=== PATIENT | female | born 1980 | race American Indian/Alaskan Native ===

== ENCOUNTER 2017-02-12 03:56 | Emergency (ER) | payer OTHER ==
[2017-02-12 05:04] LABS: Bilirubin,Urine NEG (Negative); Blood,Urine LG (Negative); Ketones,Urine NEG (Negative); Leukocyte Esterase,Urine TR (Negative); Mucus,Urine FEW /HPF; Nitrite,Urine NEG (Negative); Protein,Urine <15 mg/dL mg/dL (Negative)
[2017-02-12 05:17] LABS: Basophils % (Auto) 0.5 % (0.0-1.8); Eosinophils % (Auto) 0.1 % (0.0-4.3); Hematocrit 44.1 % (30.3-42.9); Hemoglobin 14.8 gm/dl (10.1-14.3); Mean Corpuscular HGB Conc 34 % (30-34); Mean Corpuscular Hemoglobin 27 pg (28-32); Mean Corpuscular Volume 81 fl (79-97); Platelet Count 249 K/mm3 (140-440); Red Blood Count 5.44 M/mm3 (3.65-5.03); Red Cell Distribution Width 13.7 % (13.2-15.2); White Blood Count 9.4 K/mm3 (4.5-11.0)
[2017-02-12 05:29] LABS: Alanine Aminotransferase 35 units/L (7-56); Albumin 4.3 g/dL (3.9-5); Albumin/Globulin Ratio 1.5 %; Alkaline Phosphatase 49 units/L (35-129); Anion Gap 17 mmol/L; Blood Urea Nitrogen 7 mg/dL (7-17); Calcium 9.7 mg/dL (8.4-10.2); Carbon Dioxide 25 mmol/L (22-30); Chloride 97.9 mmol/L (98-107); Glucose 140 mg/dL (65-100); Lipase 16 units/L (13-60); Potassium 4.3 mmol/L (3.6-5.0); Sodium 136 mmol/L (137-145); Total Protein 7.1 g/dL (6.3-8.2)
[2017-02-12] MEDS ORDERED: PEPCID IV ONE (06:20)
[2017-02-12] MEDS ORDERED: ZOFRAN IV ONE (06:21)
[2017-02-12] MEDS ORDERED: MORPHINE IV ONE (06:41)
--- NOTE | 2017-02-12 06:48 | Emergency Department Report ---
ED Abdominal Pain HPI - General Chief Complaint: Abdominal Pain Stated Complaint: ABD PAIN Time Seen by Provider: 02/12/17 06:08 Source: family Mode of arrival: Ambulatory Limitations: No Limitations - History of Present Illness Initial Comments: 36-year-old female here with complaint of abdominal pain since 9:30 PM yesterday. Patient states that she had developed significant pain in her suprapubic region and right lower quadrant. She's had vomiting 1. Denies fevers but some chills. No history of abdominal surgeries. Does not believe she is . Describes the pain as sharp and squeezing. Intermittently gets worse. MD Complaint: abdominal pain -: Sudden Location: RLQ Radiation: RLQ, suprapubic Migration to: no migration Severity: severe Quality: cramping, stabbing, aching Consistency: intermittent Improves With: nothing Worsens With: nothing Associated Symptoms: nausea, vomiting, chills. denies: diarrhea, fever, constipation, dysuria, hematemesis - Related Data Previous Rx's Medication Instructions Recorded Last Taken Type Ibuprofen [Motrin] 600 mg PO Q8H PRN #30 tablet 02/12/17 Unknown Rx Ondansetron [Zofran Odt] 4 mg PO Q8HR PRN #10 tab.rapdis 02/12/17 Unknown Rx Allergies Allergy/AdvReac Type Severity Reaction Status Date / Time No Known Allergies Allergy Unverified 12/03/14 09:28 ED Review of Systems ROS: Stated complaint: ABD PAIN Other details as noted in HPI Comment: All other systems reviewed and negative Constitutional: denies: chills, fever Eyes: denies: eye pain, eye discharge, vision change ENT: denies: ear pain, throat pain Respiratory: denies: cough, shortness of breath, wheezing Cardiovascular: denies: chest pain, palpitations Endocrine: no symptoms reported Gastrointestinal: abdominal pain, nausea, vomiting. denies: diarrhea Genitourinary: denies: urgency, dysuria, discharge Musculoskeletal: denies: back pain, joint swelling, arthralgia Skin: denies: rash, lesions Neurological: denies: headache, weakness, paresthesias Psychiatric: denies: anxiety, depression Hematological/Lymphatic: denies: easy bleeding, easy bruising ED Past Medical Hx - Past Medical History Previous Medical History?: No - Surgical History Past Surgical History?: No - Family History Family history: no significant - Social History Smoking Status: Never Smoker Substance Use Type: None - Medications Home Medications: Home Medications Medication Instructions Recorded Confirmed Last Taken Type Ibuprofen [Motrin] 600 mg PO Q8H PRN #30 tablet 02/12/17 Unknown Rx Ondansetron [Zofran Odt] 4 mg PO Q8HR PRN #10 tab.rapdis 02/12/17 Unknown Rx ED Physical Exam - General Limitations: No Limitations General appearance: alert, in no apparent distress, other (appears uncomfortable ) - Head Head exam: Present: atraumatic, normocephalic - Eye Eye exam: Present: normal appearance, PERRL. Absent: scleral icterus, conjunctival injection - ENT ENT exam: Present: mucous membranes moist - Neck Neck exam: Present: normal inspection. Absent: lymphadenopathy - Respiratory Respiratory exam: Present: normal lung sounds bilaterally. Absent: respiratory distress, wheezes, rales - Cardiovascular Cardiovascular Exam: Present: regular rate, normal rhythm, normal heart sounds. Absent: systolic murmur, diastolic murmur, rubs, gallop - GI/Abdominal GI/Abdominal exam: Present: soft, tenderness (right lower quadrant and suprapubic), guarding (moderate voluntary), normal bowel sounds. Absent: distended, rebound - Extremities Exam Extremities exam: Present: normal inspection - Back Exam Back exam: Present: normal inspection - Neurological Exam Neurological exam: Present: alert, oriented X3 - Psychiatric Psychiatric exam: Present: normal affect, normal mood - Skin Skin exam: Present: warm, dry, intact, normal color. Absent: rash ED Course Vital Signs 02/12/17 02/12/17 02/12/17 04:07 05:54 06:00 Temperature 98.1 F Pulse Rate 88 Respiratory Rate Blood Pressure 120/77 O2 Sat by Pulse 99 99 97 Oximetry 02/12/17 02/12/17 02/12/17 06:06 06:11 06:20 Temperature Pulse Rate Respiratory 20 Rate Blood Pressure 120/77 136/68 O2 Sat by Pulse 89 100 Oximetry 02/12/17 02/12/17 02/12/17 06:30 06:44 06:50 Temperature Pulse Rate Respiratory Rate Blood Pressure 136/68 133/67 116/70 O2 Sat by Pulse 100 89 97 Oximetry 02/12/17 02/12/17 02/12/17 07:00 07:10 07:20 Temperature Pulse Rate Respiratory Rate Blood Pressure 124/55 124/55 103/73 O2 Sat by Pulse 100 100 100 Oximetry 02/12/17 02/12/17 07:43 07:51 Temperature Pulse Rate Respiratory Rate Blood Pressure 103/73 133/71 O2 Sat by Pulse 100 97 Oximetry ED Medical Decision Making - Lab Data Result diagrams: 02/12/17 04:33 02/12/17 04:33 Laboratory Results - last 24 hr 02/12/17 02/12/17 02/12/17 04:27 04:33 04:33 WBC 9.4 RBC 5.44 H Hgb 14.8 H Hct 44.1 H MCV 81 MCH 27 L MCHC 34 RDW 13.7 Plt Count 249 Lymph % (Auto) 20.2 [place] % (Auto) 6.0 Eos % (Auto) 0.1 Baso % (Auto) 0.5 Lymph # 1.9 [place] # 0.6 Eos # 0.0 Baso # 0.0 Seg Neutrophils % 73.2 H Seg Neutrophils # 6.9 Sodium 136 L Potassium 4.3 Chloride 97.9 L Carbon Dioxide 25 Anion Gap 17 BUN 7 Creatinine 0.7 Estimated GFR > 60 BUN/Creatinine Ratio 10.00 Glucose 140 H Calcium 9.7 Total Bilirubin 0.40 AST 25 ALT 35 Alkaline Phosphatase 49 Total Protein 7.1 Albumin 4.3 Albumin/Globulin Ratio 1.5 Lipase 16 Urine Color Yellow Urine Turbidity Clear Urine pH 6.0 Ur Specific [place] 1.017 Urine Protein <15 mg/dl Urine Glucose (UA) Neg Urine Ketones Neg Urine Blood Lg Urine Nitrite Neg Urine Bilirubin Neg Urine Urobilinogen 2.0 Ur Leukocyte Esterase Tr Urine WBC (Auto) 10.0 H Urine RBC (Auto) 45.0 U Epithel Cells (Auto) 3.0 Urine Mucus Few Urine HCG, Qual Negative - Medical Decision Making 36-year-old female here with complaint of abdominal pain. Patient states that she began having pain last night around 9:30 PM. She is fairly uncomfortable here in the room. She is tender on clinical examination right lower quadrant and suprapubic region. Her labs are unremarkable. Plain CT abdomen with IV contrast to evaluate appendix. Reevaluated patient after CAT scan. Patient feeling slightly better. Her scan does not show any obvious pathology for the source of her pain. Her gallbladder slightly enlarged but no gallbladder wall thickening or pericholecystic fluid is noted on the CAT scan. White count is normal and her LFTs are also normal. She did not have appendicitis. This point it is likely food poisoning versus viral gastroenteritis. Plan discussed with patient and she is comfortable following up with her primary care doctor. Portions of this chart were dictated with dictation software. There may be dictation errors contained within this note. Critical care attestation.: If time is entered above; I have spent that time in minutes in the direct care of this critically ill patient, excluding procedure time. ED Disposition Clinical Impression: Gastroenteritis, Abdominal pain Disposition: DC-01 TO HOME OR SELFCARE Is pt being admited?: No Condition: Stable Instructions: Abdominal Pain (ED) Additional Instructions: Follow up with [facility] [phone]. Prescriptions: Ibuprofen [Motrin] 600 mg PO Q8H PRN #30 tablet PRN Reason: Pain Ondansetron [Zofran Odt] 4 mg PO Q8HR PRN #10 tab.rapdis PRN Reason: Nausea And Vomiting Referrals: PRIMARY CARE, [Primary Care Provider] - 3-5 Days Forms: Work/School Release Form(ED)
[2017-02-12] MEDS ORDERED: NACL ONE (07:20)
--- NOTE | 2017-02-12 08:08 | Cat Scan Report ---
CT SCAN OF THE ABDOMEN AND PELVIS WITH CONTRAST: HISTORY: Right lower quadrant abdominal pain. COMPARISON: 12/03/14 CT abdomen and pelvis without contrast. TECHNIQUE: Helical CT in 1.25mm intervals following IV contrast. Sagittal and coronal reconstructions. FINDINGS: The liver is normal in size and is without focal defect. The gallbladder appears mildly distended measuring 11.7 cm in length and 4.5 cm in diameter on sagittal image 201. No calcified gallstones, significant wall thickening or surrounding fluid. The common bile duct, intrahepatic biliary ducts and pancreatic duct are normal. The spleen and pancreas demonstrate a normal size and attenuation with no evidence of abnormal mass. The kidneys are normal in size and position with no evidence of hydronephrosis or mass. 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 The adrenal glands are normal. There is no intestinal obstruction or ascites. Normal appendix. The abdominal aorta is normal. The uterus and adnexa are within normal limits. There is no evidence of peritoneal air or fluid. There is no evidence of any abnormal masses or fluid collections within the pelvis. No adenopathy is identified. The bladder is normal. IMPRESSION: Mildly distended gallbladder without obvious evidence of gallstones. Correlate for biliary symptoms and consider further evaluation with ultrasound. Duplicated bilateral renal collecting systems. Normal appendix.
[2017-02-12 09:59] VITALS: BP 121/70
== END 2017-02-12 09:59 | disposition home or self-care (01) ==
LOC: ED 03:56
DX: K52.9 Noninfective gastroenteritis and colitis, unspecified (principal)
CPT/HCPCS: 36415; 74177; 80053; 81001; 81025; 83690; 85025; 99284; J2270; J2405; Q9967

== ENCOUNTER 2017-08-27 10:20 | Emergency (ER) | payer OTHER ==
--- NOTE | 2017-08-27 13:52 | Emergency Department Report ---
Blank Doc - Documentation Documentation: Patient is a 37-year-old black female who is presenting with some vaginal spotting. Patient take a home test positive. Patient states she started spotting 2 days ago. She also felt a gushing sensation in the lower abdomen but did not see a gush of blood at that time. There is some very mild suprapubic discomfort. Patient be sent for ultrasound. The patient's Quant is positive
--- NOTE | 2017-08-27 15:54 | Ultrasound Report ---
FINAL REPORT PROCEDURE: US OB < = 14 WEEKS FETUS TECHNIQUE: Real-time transabdominal sonography of the uterus, placenta, amniotic fluid, adnexa, and fetus was performed with image documentation. Measurements were obtained to determine age/size. M-mode Doppler was used to document heartbeat. CPT 33005 HISTORY: bleeding early preg COMPARISON: Transvaginal OB ultrasound also performed today. FINDINGS: The report for this exam was generated using images from both the transabdominal and transvaginal OB ultrasound both of which were performed today. A gestational sac is visualized in the endometrial canal. Yolk sac is visualized. Shape of the gestational sac is mildly irregular. No pole or heartbeat is visualized. No subchorionic hemorrhage visualized. Sac size 1.9 centimeter corresponding to an age is 6 weeks 6 days. No uterine masses are identified. No free fluid is seen in the cul-de-sac. Right ovary is unremarkable measuring 3.0 x 1.1 x 2.1 centimeter. Left ovary measures 3.2 x 2.1 x 2.8 centimeter. There is a simple appearing cyst in the left ovary measuring 2.2 centimeters which may represent corpus luteum cyst of . IMPRESSION: Gestational sac visualized with yolk sac in place. The shape of the gestational sac is irregular and I do not see a pole or heartbeat at this time. I cannot exclude demise. I would suggest follow-up exam 7-10 days to re-evaluate for living intrauterine . Cystic change visualize left ovary suggesting corpus luteum cyst of .
--- NOTE | 2017-08-27 15:55 | Ultrasound Report ---
FINAL REPORT PROCEDURE: US OB TRANSVAGINAL TECHNIQUE: Real-time transvaginal sonography of the uterus, placenta, amniotic fluid, adnexa, and fetus was performed with image documentation. Measurements were obtained to determine age/size. M-mode Doppler was used to document heartbeat. CPT 99615 HISTORY: bleeding early preg COMPARISON: Transabdominal OB ultrasound also performed today. FINDINGS: The report for this exam was generated using images from both the transabdominal and transvaginal OB ultrasound both of which were performed today. A gestational sac is visualized in the endometrial canal. Yolk sac is visualized. Shape of the gestational sac is mildly irregular. No pole or heartbeat is visualized. No subchorionic hemorrhage visualized. Sac size 1.9 centimeter corresponding to an age is 6 weeks 6 days. No uterine masses are identified. No free fluid is seen in the cul-de-sac. Right ovary is unremarkable measuring 3.0 x 1.1 x 2.1 centimeter. Left ovary measures 3.2 x 2.1 x 2.8 centimeter. There is a simple appearing cyst in the left ovary measuring 2.2 centimeters which may represent corpus luteum cyst of . IMPRESSION: Gestational sac visualized with yolk sac in place. The shape of the gestational sac is irregular and I do not see a pole or heartbeat at this time. I cannot exclude intrauterine demise. I would suggest follow-up exam 7-10 days to re-evaluate for living intrauterine . Cystic change visualize left ovary suggesting corpus luteum cyst of .
[2017-08-27 16:08] LABS: BUN/Creatinine Ratio 9; Blood Urea Nitrogen 6 mg/dL (7-17); Calcium 9.3 mg/dL (8.4-10.2); Hemolysis Index 22
[2017-08-27 16:18] LABS: Basophils % (Auto) 0.6 % (0.0-1.8); Eosinophils # (Auto) 0.1 K/mm3 (0.0-0.4); Eosinophils % (Auto) 1.9 % (0.0-4.3); Hematocrit 45.3 % (30.3-42.9); Hemoglobin 14.8 gm/dl (10.1-14.3); Lymphocytes # (Auto) 1.9 K/mm3 (1.2-5.4); Lymphocytes % (Auto) 32.2 % (13.4-35.0); Mean Corpuscular HGB Conc 33 % (30-34); Mean Corpuscular Hemoglobin 27 pg (28-32); Mean Corpuscular Volume 84 fl (79-97); Monocytes # (Auto) 0.5 K/mm3 (0.0-0.8); Monocytes % (Auto) 7.7 % (0.0-7.3); Platelet Count 261 K/mm3 (140-440); Red Blood Count 5.43 M/mm3 (3.65-5.03); Red Cell Distribution Width 13.9 % (13.2-15.2)
--- NOTE | 2017-08-27 16:35 | Emergency Department Report ---
ED Female HPI - General Chief complaint: Abdominal Pain Stated complaint: SPOTTING Time Seen by Provider: 08/27/17 13:21 Source: patient Mode of arrival: Ambulatory Limitations: No Limitations - History of Present Illness Initial comments: This is a 37-year-old female nontoxic, well nourished in appearance, no acute signs of distress presents to the ED with c/o of vaginal spotting 4 days. Patient stated she had a prosody of present test at home and Saturday and then developed vaginal spotting Saturday. 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 Patient denies any abdominal pain, back pain, fever, chills, nausea, vomiting, chest pain shortness of breath. Patient states she had a sensation of gushing in the lower abdomen but denies any vaginal bleeding during that time. Patient denies any drug allergies or significant past medical history. MD Complaint: vaginal bleeding -: days(s) (4) Severity scale (0 -10): 0 Improves with: none Worsens with: none Are you Now?: Yes Last Menstrual Period: 07/09/17 EDC: 04/15/18 Associated Symptoms: vaginal bleeding. denies: vaginal discharge, abdominal pain, nausea/vomiting, fever/chills, headaches, loss of appetite, dysuria, hematuria, rash, seizure, shortness of breath, syncope, weakness - Related Data Sexually active: Yes Previous Rx's Medication Instructions Recorded Last Taken Type Ibuprofen [Motrin] 600 mg PO Q8H PRN #30 tablet 02/12/17 Unknown Rx Ondansetron [Zofran Odt] 4 mg PO Q8HR PRN #10 tab.rapdis 02/12/17 Unknown Rx Allergies Allergy/AdvReac Type Severity Reaction Status Date / Time No Known Allergies Allergy Unverified 12/03/14 09:28 ED Review of Systems ROS: Stated complaint: SPOTTING Other details as noted in HPI Constitutional: denies: chills, fever Eyes: denies: eye pain, eye discharge, vision change ENT: denies: ear pain, throat pain Respiratory: denies: cough, shortness of breath, wheezing Cardiovascular: denies: chest pain, palpitations Endocrine: no symptoms reported Gastrointestinal: denies: abdominal pain, nausea, diarrhea Genitourinary: denies: urgency, dysuria, discharge Musculoskeletal: denies: back pain, joint swelling, arthralgia Skin: denies: rash, lesions Neurological: denies: headache, weakness, paresthesias Psychiatric: denies: anxiety, depression Hematological/Lymphatic: denies: easy bleeding, easy bruising ED Past Medical Hx - Past Medical History Previous Medical History?: No - Surgical History Past Surgical History?: No - Social History Smoking Status: Never Smoker Substance Use Type: None - Medications Home Medications: Home Medications Medication Instructions Recorded Confirmed Last Taken Type Ibuprofen [Motrin] 600 mg PO Q8H PRN #30 tablet 02/12/17 Unknown Rx Ondansetron [Zofran Odt] 4 mg PO Q8HR PRN #10 tab.rapdis 02/12/17 Unknown Rx ED Physical Exam - General Limitations: No Limitations General appearance: alert, in no apparent distress - Head Head exam: Present: atraumatic, normocephalic - Eye Eye exam: Present: normal appearance - ENT ENT exam: Present: mucous membranes moist - Neck Neck exam: Present: normal inspection - Respiratory Respiratory exam: Present: normal lung sounds bilaterally. Absent: respiratory distress, wheezes, rales, rhonchi, stridor, chest wall tenderness, accessory muscle use, decreased breath sounds, prolonged expiratory - Cardiovascular Cardiovascular Exam: Present: regular rate, normal rhythm, normal heart sounds. Absent: irregular rhythm, systolic murmur, diastolic murmur, rubs, gallop - GI/Abdominal GI/Abdominal exam: Present: soft, normal bowel sounds. Absent: distended, tenderness, guarding, rebound, rigid, diminished bowel sounds - Rectal Rectal exam: Present: deferred - Extremities Exam Extremities exam: Present: normal inspection, full ROM, normal capillary refill - Back Exam Back exam: Present: normal inspection, full ROM - Neurological Exam Neurological exam: Present: alert, oriented X3, normal gait - Psychiatric Psychiatric exam: Present: normal affect, normal mood - Skin Skin exam: Present: warm, dry, intact, normal color. Absent: rash ED Course - Reevaluation(s) Reevaluation #1: 08/27/17 16:32 Patient is speaking in full sentences with no signs of distress noted. - Consultations Consultation #1: 08/27/17 16:33 Patient has been consulted with Dr. Mora about patient history, physical exam , and labs and examined and screened patient and agrees to ED plan of care and discharge plan of care. ED Medical Decision Making - Lab Data Result diagrams: 08/27/17 15:01 08/27/17 10:44 - Medical Decision Making This is a 37-year-old female that presents with a threatened miscarriage. Patient is stable was examined by me and Dr. Mora. Labs within normal limits. No abdominal distention or tenderness. Patient currently in the ED denies any vaginal bleeding. Ultrasound obtained and dictated by radiologist with impression of this or sac or no IV. Patient was notified of the results as noted by the patient. Patient was instructed to return in 2 days for a reassessment of quantitative test. Patient was instructed referred to Follow-up with a ACCOUNT RESOLUTION ANALYST in 24 hours or if symptoms worsen and continue return to emergency room as soon as possible. At time of discharge, the patient does not seem toxic or ill in appearance. No acute signs of distress noted. Patient agrees to discharge treatment plan of care. No further questions noted by the patient. Critical care attestation.: If time is entered above; I have spent that time in minutes in the direct care of this critically ill patient, excluding procedure time. ED Disposition Clinical Impression: Threatened miscarriage Disposition: DC-01 TO HOME OR SELFCARE Is pt being admited?: No Does the pt Need Aspirin: No Condition: Stable Instructions: Threatened Miscarriage (ED) Additional Instructions: Follow-up with a ACCOUNT RESOLUTION ANALYST in 24 hours or if symptoms worsen and continue return to emergency room as soon as possible. Your HCG Quantitative test today is 11,301 Referrals: PRIMARY CAREMD [Primary Care Provider] - 3-5 Days MJ SMITH MD [Staff Physician] - 24 Hours [facility] [Provider [facility]] - 24 Hours Forms: Work/School Release Form(ED)
[2017-08-27 16:46] VITALS: BP 118/55
== END 2017-08-27 17:06 | disposition home or self-care (01) ==
LOC: ED 10:20
DX: O20.0 Threatened abortion (principal); Z3A.01 Less than 8 weeks gestation of pregnancy
CPT/HCPCS: 36415; 76801; 76817; 80048; 84702; 85025; 86900; 86901; 99284